=== PATIENT | male | born 1940 | race Caucasian/White ===

== ENCOUNTER 2019-11-16 05:16 | Emergency (ER) | payer MEDICARE ==
[~2019-11-16] VITALS: Ht 182.9 cm; Wt 102.3 kg
[~2019-11-16 05:16] MED LIST: CARB200T PO
[2019-11-16] MEDS ORDERED: FLO0.4C PO (05:37)
[2019-11-16] MEDS ORDERED: tropicamide 0.5% ophthalmic drops 15ml LEFTEYE ONE (05:40)
[2019-11-16] MEDS ORDERED: iohexol 350MG/ML 100ml bottle IV ONE (05:52)
[2019-11-16] MEDS ORDERED: FINA5TAB11 PO (05:53)
--- NOTE | 2019-11-16 05:55 | NUR ---
NEUROLOGIST WITH PATIENT VIA REMOTE ACCESS.
--- NOTE | 2019-11-16 05:55 | NUR ---
Patient gave verbal consent to do teleneurologist at this time.
[2019-11-16] MEDS ORDERED: ASPI81TA52 PO (05:59)
--- NOTE | 2019-11-16 05:59 | NUR ---
NEUROLOGIST DONE SPEAKING. CT CALLED FOR CTA. PT STATES HE IS DEVELOPING A LITTLE HEADACHE IN THE BACK OF HIS HEAD. PT STATES PAST 10 DAYS HE WOULD OCCASIONALLY HAVE A STABBING PAIN IN THE LEFT EYE CLOSEST TO THE NOSE.
--- NOTE | 2019-11-16 06:02 | NUR ---
PT TO CT VIA STRETCHER AND ZOLL MONITOR AND WITH THE STROKE RN.
[2019-11-16 06:08] LABS: BASOPHILS % (AUTO) 0.6 % (0-1); EOSINOPHILS # (AUTO) 0.2 X10'3 (0-0.9); EOSINOPHILS % (AUTO) 2.8 % (0-6); HEMATOCRIT 43.3 % (42.0-52.0); HEMOGLOBIN 15.1 g/dl (14.0-17.9); LYMPHOCYTES # (AUTO) 2.1 X10'3 (1.1-4.8); LYMPHOCYTES % (AUTO) 27.2 % (21-51); MEAN CORPUSCULAR HEMOGLOBIN 31.4 PG (27.0-31.0); MEAN CORPUSCULAR HGB CONC 34.8 g/dL (33.0-36.5); MEAN CORPUSCULAR VOLUME 90.2 FL (78-98); MEAN PLATELET VOLUME 8.1 FL (7.4-10.4); MONOCYTES # (AUTO) 0.5 X10'3 (0-0.9); MONOCYTES % (AUTO) 5.9 % (2-12); NEUTROPHILS # (AUTO) 4.9 X10'3 (1.8-7.7); NEUTROPHILS % (AUTO) 63.5 % (42-75); PLATELET COUNT 193 X10'3 (140-440); RED BLOOD COUNT 4.81 X10'6 (4.70-6.10); RED CELL DISTRIBUTION WIDTH 13.6 % (11.5-14.5); WHITE BLOOD COUNT 7.8 X10'3 (4.5-11.0)
--- NOTE | 2019-11-16 06:12 | NUR ---
PT BACK FROM CT WITH CONTRAST - PT REPORTS NO CHANGES IN VISION SINCE ARRIVING IN ER.
[2019-11-16 06:18] LABS: PARTIAL THROMBOPLASTIN TIME 28 SECONDS (22-32)
[2019-11-16 06:20] LABS: ALANINE AMINOTRANSFERASE 38 U/L (12-78); ALBUMIN 3.6 G/DL (3.4-5.0); ALBUMIN/GLOBULIN RATIO 1.2 (1.1-1.5); ALKALINE PHOSPHATASE 97 IU/L (46-116); ANION GAP 10 (8-16); ASPARTATE AMINO TRANSFERASE 20 U/L (10-37); BILIRUBIN,TOTAL 0.6 MG/DL (0.1-1.0); BLOOD UREA NITROGEN 12 MG/DL (7-18); C-REACTIVE PROTEIN 0.66 MG/DL (0.0-0.5); CALCIUM 8.6 MG/DL (8.5-10.1); CHLORIDE 106 MMOL/L (99-107); CREATININE 1.09 MG/DL (0.60-1.10); GLUCOSE 138 MG/DL (70-104); POTASSIUM 3.4 MMOL/L (3.5-5.1); SODIUM 142 MMOL/L (135-145); TOTAL CARBON DIOXIDE 26.3 MMOL/L (24-32); TOTAL PROTEIN 6.7 G/DL (6.4-8.2); eGFR 65 ML/MIN
--- NOTE | 2019-11-16 06:40 | NUR ---
Pt stroke alert called off per Dr. Cronin.
[2019-11-16] MEDS ORDERED: aspirin 81mg tab.chew PO ONE (08:40)
[2019-11-16 08:45] LABS: CLARITY,URINE CLEAR (Clear); COLOR,URINE YELLOW (Yellow); GLUCOSE, URINE NEGATIVE (Neg); KETONES,URINE NEGATIVE (Neg); LEUKOCYTE ESTERASE ,URINE NEGATIVE (Neg); NITRITES, URINE NEGATIVE (Neg); OCCULT BLOOD,URINE NEGATIVE (Neg); PROTEIN,URINE NEGATIVE (Neg); UROBILINOGEN,URINE 0.2 E.U/dL (0.2-1.0)
[2019-11-16 08:46] LABS: UA COLLECTION TYPE URINAL
[2019-11-16 08:58] VITALS: BP 163/70
== END 2019-11-16 09:04 | disposition home or self-care (01) ==
LOC: ER 05:17
DX: G45.3 Amaurosis fugax (principal); Z79.899 Other long term (current) drug therapy
CPT/HCPCS: 36415; 70450; 70496; 70498; 71045; 80053; 81003; 85025; 85610; 85651; 85730; 86140; 86885; 86900; 86901; 93005; 99284; Q9967

== ENCOUNTER 2020-12-31 15:09 | Inpatient (IN) | payer MEDICARE ==
[2020-12-28 16:16] LABS: BASOPHILS # (AUTO) 0.1 X10'3 (0-0.2); BASOPHILS % (AUTO) 0.8 % (0-1); EOSINOPHILS # (AUTO) 0.2 X10'3 (0-0.9); EOSINOPHILS % (AUTO) 1.9 % (0-6); HEMATOCRIT 42.5 % (42.0-52.0); HEMOGLOBIN 14.7 g/dl (14.0-17.9); MEAN CORPUSCULAR HEMOGLOBIN 31.4 PG (27.0-31.0); MEAN CORPUSCULAR HGB CONC 34.7 g/dL (33.0-36.5); MEAN CORPUSCULAR VOLUME 90.5 FL (78-98); MEAN PLATELET VOLUME 7.9 FL (7.4-10.4); MONOCYTES # (AUTO) 0.5 X10'3 (0-0.9); MONOCYTES % (AUTO) 6.6 % (2-12); NEUTROPHILS # (AUTO) 5.3 X10'3 (1.8-7.7); NEUTROPHILS % (AUTO) 65.7 % (42-75); PLATELET COUNT 202 X10'3 (140-440); RED BLOOD COUNT 4.69 X10'6 (4.70-6.10); RED CELL DISTRIBUTION WIDTH 13.5 % (11.5-14.5); WHITE BLOOD COUNT 8.1 X10'3 (4.5-11.0)
[2020-12-28 16:36] LABS: ALBUMIN 3.9 G/DL (3.4-5.0); ANION GAP 9 (8-16); BLOOD UREA NITROGEN 13 MG/DL (7-18); BUN/CREATININE RATIO 13.7 (5.4-32.0); CALCIUM 8.8 MG/DL (8.5-10.1); CHLORIDE 104 MMOL/L (99-107); CREATININE 0.95 MG/DL (0.60-1.10); GLUCOSE 96 MG/DL (70-104); SODIUM 141 MMOL/L (135-145); TOTAL CARBON DIOXIDE 28.3 MMOL/L (24-32); eGFR 76 ML/MIN
[2020-12-28 16:37] LABS: PARTIAL THROMBOPLASTIN TIME 26 SECONDS (22-32)
[~2020-12-31] VITALS: Ht 182.9 cm; Wt 105.3 kg
[2020-12-31] VITALS (8 sets, daily range): BP systolic 88–153; BP diastolic 48–67
[~2020-12-31 15:09] MED LIST changes: +ASPI81TA52 PO; -CARB200T PO; +FINA5TAB11 PO; +FLO0.4C PO
[2020-12-31] MEDS ORDERED: diphenhydrAMINE 25mg capsule PO PRN (15:35)
[2020-12-31] MEDS ORDERED: LORazepam 0.5 MG tablet PO PRN (15:35)
[2020-12-31] MEDS ORDERED: normal saline 1,000 ML IV SCH (15:35)
[2020-12-31] MEDS ORDERED: heparin 1,000 UNITS/NS 500ml 500 ML ONE (16:26)
[2020-12-31] MEDS ORDERED: OMEG1CAP13 PO (17:02)
[2020-12-31] MEDS ORDERED: CALC-723 PO (17:02)
[2020-12-31] MEDS ORDERED: VITA1TAB37 PO (17:02)
[2020-12-31] MEDS ORDERED: CLOP75TA15 PO (17:02)
[2020-12-31] MEDS ORDERED: POTA8CAP20 PO (17:02)
[2020-12-31] MEDS ORDERED: ATOR40TA14 PO (17:02)
[2020-12-31] MEDS ORDERED: LEVO100C4 PO (17:02)
[2020-12-31] MEDS ORDERED: ASCO500C17 PO (17:02)
[2020-12-31] MEDS ORDERED: LIDOcaine 1% (10mg/ml)w/preservative injection 20ml MDV ONE (17:41)
[2020-12-31] MEDS ORDERED: iohexol 350 MG/1 ML 200ml bottle ONE (17:42)
[2020-12-31] MEDS ORDERED: heparin 1,000unit/ml 10ml vial 10 ML ONE (17:42)
[2020-12-31] MEDS ORDERED: phenylephrine 10mg/ml inj. ONE (17:43)
[2020-12-31] MEDS ORDERED: DOPamine 400mg/D5W 250ml 250 ML IV ONE (17:43)
[2020-12-31] MEDS ORDERED: atropine 0.1mg/ml 10ml syringe ONE (17:48)
[2020-12-31] MEDS ORDERED: clopidogrel 300mg tablet ONE (18:34)
--- NOTE | 2020-12-31 19:20 | NUR ---
Report called to Jhon PALOMINO with current condition and needs. Chance given to ask question concerning pt care. Pt transferred to room 307 with all personal belongings. Pt transferred via slider board to bed. Groin checked for bleeding and pedal pulses checked. Neuro conditions appear unchanged with transfer at 1940. Care transferred to Jhon PALOMINO. Addendum: 12/31/20 at 2014 by Chris Wang RN Amended: Links added.
[2020-12-31] MEDS ORDERED: temazepam 15mg capsule PO PRN ×2 (22:35→22:40)
[2020-12-31] MEDS ORDERED: ibuprofen 200mg tablet PO ONE ×2 (22:35→22:45)
--- NOTE | 2021-01-01 01:25 | NUR ---
Pt BP and HR decreased, MD West aware. Pt is asymptomatic
--- NOTE | 2021-01-01 01:33 | NUR ---
MD West notified by primary nurse regarding patient's blood pressure and heart rate being low. Examined patient with nurse and patient was asymptomatic, alert, and oriented. No new orders. Will continue to monitor closely.
[2021-01-01 02:00] VITALS: BP 97/44
[2021-01-01] MEDS ORDERED: HYDROcodone/acetaminophen 5mg/325mg tablet PO PRN (03:30)
[2021-01-01] MEDS ORDERED: HYDROcodone/acetaminophen 10/325mg tab PO PRN (03:30)
[2021-01-01] MEDS ORDERED: normal saline 1000ml 1,000 ML IV SCH (03:40)
[2021-01-01] MEDS ORDERED: ondansetron/PF 4mg/2ml inj IV PRN (03:40)
[2021-01-01] MEDS ORDERED: proCHLORperazine 10 MG/2 ml inj IV PRN (03:45)
[2021-01-01] MEDS ORDERED: OXAZEpam 15mg capsule PO PRN (03:45)
[2021-01-01 06:00] VITALS: BP 87/45
--- NOTE | 2021-01-01 06:25 | NUR ---
Problems reprioritized. Patient report given, questions answered & plan of care reviewed with Venkata PALOMINO.
--- NOTE | 2021-01-01 06:27 | NUR ---
Problems reprioritized. Patient report given, questions answered & plan of care reviewed with Eileen PALOMINO.
[2021-01-01] MEDS ORDERED: clopidogrel 75mg tablet PO SCH (08:00)
[2021-01-01 08:26] LABS: ALBUMIN 2.9 G/DL (3.4-5.0); ANION GAP 8 (8-16); BLOOD UREA NITROGEN 15 MG/DL (7-18); CALCIUM 7.7 MG/DL (8.5-10.1); CHLORIDE 107 MMOL/L (99-107); CREATININE 0.94 MG/DL (0.60-1.10); GLUCOSE 113 MG/DL (70-104); POTASSIUM 3.5 MMOL/L (3.5-5.1); SODIUM 138 MMOL/L (135-145); TOTAL CARBON DIOXIDE 22.7 MMOL/L (24-32); eGFR 77 ML/MIN
--- NOTE | 2021-01-02 12:51 | NUR ---
CASE MANAGEMENT DISCHARGE FOLLOW UP: Spoke pt with via telephone. Reports that he is doing "just fine"; denies CP, general pain, SOB/dyspnea, bleeding/discharge, fever/chills. Verbalizes understanding of s/sx requiring further evaluation/emergent assistance. Verbalizes understanding of medications. Verbalizes compliance with MD discharge instructions. Verbalizes understanding of the importance in making/keeping follow-up appointments, already scheduled to follow up with Dr West. States no further questions/concerns at this time.
== END 2021-01-01 09:10 | disposition home or self-care (01) | DRG 35 ==
LOC: SSTAY O 15:09 → OBSVTOIN 19:41 → UNDOADMOB 19:41 → MED 3N 19:41 → INTOOBSV 19:41 → UNDODISOB 01-01 09:10
PROVIDERS: ADMIT Internal Medicine Interventional Cardiology; ATTEND Internal Medicine Interventional Cardiology
PROC: B3141ZZ Fluoroscopy of Left Common Carotid Artery using Low Osmolar Contrast (ICD-10-PCS; principal; 2020-12-31)
PROC: 037L3DZ Dilation of Left Internal Carotid Artery with Intraluminal Device, Percutaneous Approach (ICD-10-PCS; 2020-12-31)
PROC: B3171ZZ Fluoroscopy of Left Internal Carotid Artery using Low Osmolar Contrast (ICD-10-PCS; 2020-12-31)
PROC: B31B1ZZ Fluoroscopy of Left External Carotid Artery using Low Osmolar Contrast (ICD-10-PCS; 2020-12-31)
PROC: B3101ZZ Fluoroscopy of Thoracic Aorta using Low Osmolar Contrast (ICD-10-PCS; 2020-12-31)
DX: I65.23 Occlusion and stenosis of bilateral carotid arteries (principal); H34.12 Central retinal artery occlusion, left eye; E78.5 Hyperlipidemia, unspecified; E78.00 Pure hypercholesterolemia, unspecified; I48.91 Unspecified atrial fibrillation; E03.9 Hypothyroidism, unspecified; I49.9 Cardiac arrhythmia, unspecified; G47.33 Obstructive sleep apnea (adult) (pediatric); Z79.899 Other long term (current) drug therapy; Z88.8 Allergy status to other drugs, medicaments and biological substances; Z95.818 Presence of other cardiac implants and grafts
CPT/HCPCS: 36415; 37215; 75710; 80048; 85025; 85610; 85730; 87081; 93005; 96360; 96361; A6258; C1725; C1760; C1769; C1876; C1884; C1887; C1894; G0378; J0461; J1265; J1644; J2001; J2370; J7030; Q9967

== ENCOUNTER 2022-01-16 09:07 | Emergency (ER) | payer MEDICARE ==
[~2022-01-16] VITALS: Ht 182.9 cm; Wt 110.0 kg
[~2022-01-16 09:07] MED LIST changes: +ASCO500C17 PO; -ASPI81TA52 PO; +ATOR40TA14 PO; +CALC-723 PO; +CEPH-585 PO; +CLOP75TA15 PO; +LEVO100C4 PO; +OMEG1CAP13 PO; +PHEN-716 PO; +POTA8CAP20 PO; +VITA1TAB37 PO
[2022-01-16 09:09] VITALS: BP 112/60
--- NOTE | 2022-01-16 09:15 | NUR ---
first contact with pt. reports claire cath placed one week ago for infection. catheter removed without incident. will wait until pt able to urinate before discharging. provider aware.
--- NOTE | 2022-01-16 10:39 | NUR ---
pt ambulated around ed, unable to urinate after drinking one liter of water approx 45 min ago. pt spoke with provider, ok for pt to go home and attempt to urinate there. pt will come back to ed if unable to urinate at home.
== END 2022-01-16 10:43 | disposition home or self-care (01) ==
LOC: ER 09:07
DX: R33.9 Retention of urine, unspecified (principal); Z86.73 Personal history of transient ischemic attack (TIA), and cerebral infarction without residual deficits; Z87.440 Personal history of urinary (tract) infections; Z72.89 Other problems related to lifestyle; Z79.2 Long term (current) use of antibiotics; Z79.899 Other long term (current) drug therapy
CPT/HCPCS: 99281

== ENCOUNTER 2022-01-21 09:24 | Emergency (ER) | payer MEDICARE ==
[~2022-01-21] VITALS: Ht 182.9 cm; Wt 100.0 kg
[2022-01-21 10:09] LABS: CLARITY,URINE CLOUDY (Clear); COLOR,URINE YELLOW (Yellow); GLUCOSE, URINE NEGATIVE (Neg); KETONES,URINE NEGATIVE (Neg); LEUKOCYTE ESTERASE ,URINE LARGE (Neg); NITRITES, URINE POSITIVE (Neg); OCCULT BLOOD,URINE MODERATE (Neg); PROTEIN,URINE 100 mg/dl (Neg); UROBILINOGEN,URINE 0.2 E.U/dL (0.2-1.0)
[2022-01-21 10:19] LABS: UA COLLECTION TYPE CLN CATCH MIDSTREAM
[2022-01-21 10:20] LABS: WBC,URINE TNTC /HPF (0-4)
[2022-01-21 10:22] LABS: BACTERIA,URINE 2+ /HPF (Neg); SQUAMOUS EPITHELIAL CELL,UR FEW /LPF (FEW)
[2022-01-21 10:35] LABS: BASOPHILS # (AUTO) 0.1 X10'3 (0-0.2); BASOPHILS % (AUTO) 0.7 % (0-1); EOSINOPHILS # (AUTO) 0.1 X10'3 (0-0.9); EOSINOPHILS % (AUTO) 0.5 % (0-6); HEMATOCRIT 40.8 % (42.0-52.0); HEMOGLOBIN 13.8 g/dl (14.0-17.9); LYMPHOCYTES # (AUTO) 1.5 X10'3 (1.1-4.8); LYMPHOCYTES % (AUTO) 10.7 % (21-51); MEAN CORPUSCULAR HEMOGLOBIN 30.8 PG (27.0-31.0); MEAN CORPUSCULAR HGB CONC 33.7 g/dL (33.0-36.5); MEAN CORPUSCULAR VOLUME 91.4 FL (78-98); MEAN PLATELET VOLUME 7.4 FL (7.4-10.4); MONOCYTES # (AUTO) 0.5 X10'3 (0-0.9); MONOCYTES % (AUTO) 3.9 % (2-12); NEUTROPHILS # (AUTO) 11.7 X10'3 (1.8-7.7); NEUTROPHILS % (AUTO) 84.2 % (42-75); PLATELET COUNT 207 X10'3 (140-440); RED BLOOD COUNT 4.46 X10'6 (4.70-6.10); RED CELL DISTRIBUTION WIDTH 13.7 % (11.5-14.5); WHITE BLOOD COUNT 13.9 X10'3 (4.5-11.0)
[2022-01-21 10:48] LABS: ALANINE AMINOTRANSFERASE 39 U/L (12-78); ALBUMIN 3.4 G/DL (3.4-5.0); ALBUMIN/GLOBULIN RATIO 1.1 (1.1-1.5); ALKALINE PHOSPHATASE 72 IU/L (46-116); ANION GAP 11 (8-16); ASPARTATE AMINO TRANSFERASE 27 U/L (10-37); BILIRUBIN,TOTAL 0.8 MG/DL (0.1-1.0); BLOOD UREA NITROGEN 12 MG/DL (7-18); BUN/CREATININE RATIO 15.8 (5.4-32.0); CALCIUM 8.9 MG/DL (8.5-10.1); CHLORIDE 107 MMOL/L (99-107); CREATININE 0.76 MG/DL (0.60-1.10); GLUCOSE 143 MG/DL (70-104); POTASSIUM 3.8 MMOL/L (3.5-5.1); SODIUM 140 MMOL/L (135-145); TOTAL CARBON DIOXIDE 22.2 MMOL/L (24-32); TOTAL PROTEIN 6.6 G/DL (6.4-8.2); eGFR > 90 ML/MIN
[2022-01-21] MEDS ORDERED: levoFLOXACIN-Levaquin 750MG/D5 150 ML IV ONE (11:00)
--- NOTE | 2022-01-21 11:01 | NUR ---
Breaking primary RN. Per KYLE Alcantar, Rascon catheter not needed at this time.
[2022-01-21] MEDS ORDERED: PHEN-716 PO (12:00)
[2022-01-21] MEDS ORDERED: CIPR-429 PO (12:00)
[2022-01-21 14:33] VITALS: BP 143/83
== END 2022-01-21 14:35 | disposition home or self-care (01) ==
LOC: ER 09:25
DX: N39.0 Urinary tract infection, site not specified (principal); R33.9 Retention of urine, unspecified; R30.0 Dysuria; Z86.73 Personal history of transient ischemic attack (TIA), and cerebral infarction without residual deficits; Z87.440 Personal history of urinary (tract) infections; Z98.890 Other specified postprocedural states; Z72.89 Other problems related to lifestyle; Z79.2 Long term (current) use of antibiotics; Z79.899 Other long term (current) drug therapy
CPT/HCPCS: 36415; 80053; 81001; 85025; 87077; 87088; 87186; 96365; 96366; 99284; J1956

== ENCOUNTER 2023-06-04 21:30 | Emergency (ER) | payer MEDICARE ==
[~2023-06-04 21:30] MED LIST changes: -CEPH-585 PO; +OMEG-45 PO; -OMEG1CAP13 PO
== END 2023-06-04 22:21 | disposition left against medical advice (07) ==
LOC: ER 21:31
DX: T81.9XXA Unspecified complication of procedure, initial encounter (principal); Z53.21 Procedure and treatment not carried out due to patient leaving prior to being seen by health care provider

== ENCOUNTER 2023-06-04 22:16 | Emergency (ER) | payer MEDICARE ==
[~2023-06-04] VITALS: Ht 182.9 cm; Wt 102.3 kg
[2023-06-04 23:33] VITALS: TEMP 98.4
[2023-06-05 00:12] LABS: CLARITY,URINE TURBID (Clear); COLOR,URINE BROWN (Yellow)
[2023-06-05 00:22] LABS: UA COLLECTION TYPE CLN CATCH MIDSTREAM
[2023-06-05 00:23] LABS: WBC,URINE 50-100 /HPF (0-4)
[2023-06-05 00:24] LABS: RBC,URINE TNTC /HPF (0-2)
[2023-06-05 00:25] LABS: BACTERIA,URINE FEW /HPF (Neg); MUCUS STRANDS FEW /LPF (Neg); SQUAMOUS EPITHELIAL CELL,UR FEW /LPF (FEW); WBC CLUMPS,URINE FEW /HPF (NEGATIVE)
[2023-06-05 02:28] VITALS: BP 144/60; PULSE 81; RESP 18; O2SAT 98
== END 2023-06-05 02:30 | disposition home or self-care (01) ==
LOC: ER 22:16
DX: R31.9 Hematuria, unspecified (principal); I51.9 Heart disease, unspecified; E03.9 Hypothyroidism, unspecified; Z79.899 Other long term (current) drug therapy; Z79.1 Long term (current) use of non-steroidal anti-inflammatories (NSAID); Z79.2 Long term (current) use of antibiotics
CPT/HCPCS: 81001; 87088; 99283

== ENCOUNTER 2023-06-07 11:46 | Emergency (ER) | payer MEDICARE ==
[~2023-06-07] VITALS: Ht 182.9 cm; Wt 97.0 kg
[2023-06-07 12:12] VITALS: BP 140/61; PULSE 90; RESP 18; TEMP 98.2; O2SAT 99
[2023-06-07 13:02] LABS: CLARITY,URINE CLOUDY (Clear); COLOR,URINE BROWN (Yellow); GLUCOSE, URINE NEGATIVE (Neg); KETONES,URINE NEGATIVE (Neg); LEUKOCYTE ESTERASE ,URINE TRACE (Neg); NITRITES, URINE NEGATIVE (Neg); OCCULT BLOOD,URINE LARGE (Neg); PROTEIN,URINE 100 mg/dl (Neg); UROBILINOGEN,URINE 0.2 E.U/dL (0.2-1.0)
[2023-06-07 13:04] LABS: UA COLLECTION TYPE FOLEY CATH
[2023-06-07 13:13] LABS: MUCUS STRANDS FEW /LPF (Neg); SQUAMOUS EPITHELIAL CELL,UR NONE SEEN /LPF (FEW)
[2023-06-07 13:19] LABS: BACTERIA,URINE FEW /HPF (Neg); RBC,URINE TNTC /HPF (0-2); WBC,URINE 20-30 /HPF (0-4)
== END 2023-06-07 15:30 | disposition home or self-care (01) ==
LOC: ER 11:46
DX: R31.9 Hematuria, unspecified (principal); E03.9 Hypothyroidism, unspecified; Z87.448 Personal history of other diseases of urinary system; Z79.899 Other long term (current) drug therapy; Z79.1 Long term (current) use of non-steroidal anti-inflammatories (NSAID); Z79.2 Long term (current) use of antibiotics
CPT/HCPCS: 51702; 81001; 87088; 99284; A4314; A4340

== ENCOUNTER 2023-11-06 18:39 | Emergency (ER) | payer MEDICARE ==
[~2023-11-06] VITALS: Ht 182.9 cm; Wt 104.8 kg
[2023-11-06 19:53] LABS: BASOPHILS % (AUTO) 0.3 % (0-1); EOSINOPHILS # (AUTO) 0.2 X10'3 (0-0.9); HEMATOCRIT 40.7 % (42.0-52.0); HEMOGLOBIN 13.8 g/dl (14.0-17.9); LYMPHOCYTES # (AUTO) 1.9 X10'3 (1.1-4.8); LYMPHOCYTES % (AUTO) 26.6 % (21-51); MEAN CORPUSCULAR HEMOGLOBIN 30.5 PG (27.0-31.0); MEAN CORPUSCULAR HGB CONC 33.9 g/dL (33.0-36.5); MEAN PLATELET VOLUME 7.3 FL (7.4-10.4); MONOCYTES # (AUTO) 0.5 X10'3 (0-0.9); MONOCYTES % (AUTO) 7.2 % (2-12); NEUTROPHILS # (AUTO) 4.4 X10'3 (1.8-7.7); NEUTROPHILS % (AUTO) 62.9 % (42-75); PLATELET COUNT 188 X10'3 (140-440); RED BLOOD COUNT 4.52 X10'6 (4.70-6.10); WHITE BLOOD COUNT 7.1 X10'3 (4.5-11.0)
[2023-11-06 20:00] VITALS: BP 152/74; PULSE 98; RESP 18; TEMP 98; O2SAT 98
[2023-11-06 20:04] LABS: PROTHROMBIN TIME 10.9 SECONDS (9.0-12.0)
[2023-11-06 20:42] LABS: ALANINE AMINOTRANSFERASE 24 U/L (12-78); ALBUMIN 3.4 G/DL (3.4-5.0); ALBUMIN/GLOBULIN RATIO 1.1 (1.1-1.5); ALKALINE PHOSPHATASE 81 IU/L (46-116); ANION GAP 12 (8-16); ASPARTATE AMINO TRANSFERASE 11 U/L (10-37); BILIRUBIN,TOTAL 0.6 MG/DL (0.1-1.0); BLOOD UREA NITROGEN 13 MG/DL (7-18); BUN/CREATININE RATIO 14.4 (10.0-20.0); CALCIUM 8.7 MG/DL (8.5-10.1); CHLORIDE 106 MMOL/L (99-107); GLUCOSE 101 MG/DL (70-104); POTASSIUM 3.7 MMOL/L (3.5-5.1); SODIUM 143 MMOL/L (135-145); TOTAL CARBON DIOXIDE 24.8 MMOL/L (24-32); TOTAL PROTEIN 6.5 G/DL (6.4-8.2); eCRCL 66 ML/MIN; eGFR 80 ML/MIN
== END 2023-11-06 21:16 | disposition home or self-care (01) ==
LOC: ER 18:40
DX: N39.0 Urinary tract infection, site not specified (principal); R31.9 Hematuria, unspecified; W19.XXXA Unspecified fall, initial encounter; Y93.89 Activity, other specified; Y92.89 Other specified places as the place of occurrence of the external cause; Y99.8 Other external cause status
CPT/HCPCS: 36415; 70450; 72125; 80053; 85025; 85610; 93005; 99284

== ENCOUNTER 2023-12-05 20:14 | Emergency (ER) | payer MEDICARE ==
[~2023-12-05] VITALS: Ht 182.9 cm; Wt 101.1 kg
[2023-12-05 20:34] VITALS: BP 124/60; PULSE 80; RESP 17; TEMP 98.2; O2SAT 98
== END 2023-12-05 21:04 | disposition home or self-care (01) ==
LOC: ER 20:15
DX: T16.2XXA Foreign body in left ear, initial encounter (principal); Z79.899 Other long term (current) drug therapy; Z79.2 Long term (current) use of antibiotics; W44.G1XA Audio device entering into or through a natural orifice, initial encounter; Y93.89 Activity, other specified; Y92.89 Other specified places as the place of occurrence of the external cause; Y99.8 Other external cause status
CPT/HCPCS: 69200; 99284